=== PATIENT | male | born 1990 | race Caucasian/White ===

== ENCOUNTER 2024-07-22 18:01 | Outpatient (CLI) | payer BC, SELFPAY | END 2024-07-22 18:02 | disposition home or self-care (01) | PROVIDERS: PCP Registered Nurse; Visit Provider Registered Nurse | DX: Z13.6 Encounter for screening for cardiovascular disorders (principal); Z13.1 Encounter for screening for diabetes mellitus | CPT/HCPCS: 80061; 82947 ==

== ENCOUNTER 2024-12-23 16:46 | Outpatient (CLI) | payer BC, SELFPAY | END 2024-12-23 16:47 | disposition home or self-care (01) | LOC: LKVREF 16:47 | PROVIDERS: PCP Family Medicine; Visit Provider Physician Assistant Medical | DX: R55 Syncope and collapse (principal) | CPT/HCPCS: 84443 ==